=== PATIENT | female | born 1950 | race Caucasian/White ===

== ENCOUNTER 2016-11-17 20:27 | Emergency (ER) | payer MEDICARE ==
[~2016-11-17] VITALS: Ht 162.6 cm; Wt 96.0 kg
--- NOTE | 2016-11-17 20:31 | ED.ADGEN ---
Past History Past Medical History: Bronchitis, COPD, Pneumonia, Other Past Surgical History: Other Smoking: Cigarettes, Quit Greater Than 1 Year Adult General Chief Complaint Chief Complaint " They called me to come in.. because my labs came back.. that I might have a pul. emboli..." HPI HPI Patient is a 66 year old female who presents with above hx and complaints of recent hx of chest cold since 11/08/16. Pt. hx myalgia, arthralgia, malaise, and loss of appetite. Patient seen in Dr. Galvin's office today and labs came back with elevated d-dimer. Patient reportedly had decreased saturations in the medicine clinic. Saturations increased with breathing treatments. Patient does smoke. History of chronic bronchitis, COPD, ADD, anxiety, thyroid nodules, sleep apnea, tobacco abuse - 49 pack years, ( stop tob. 2 yrs. ago), , hypertension, ashen, insomnia, status post bariatric surgery , back surgery and chronic back pain. Review of Systems Review of Systems Constitutional: Hx of fever or chills [] Eyes: Denies change in visual acuity, redness, or eye pain [] HENT: Denies nasal congestion or sore throat [] Respiratory: Complaints of cough and shortness of breath [] Cardiovascular: No additional information not addressed in HPI [] GI: Denies abdominal pain, nausea, vomiting, bloody stools or diarrhea [] : Denies dysuria or hematuria [] Musculoskeletal: Denies back pain or joint pain [] Integument: Denies rash or skin lesions [] Neurologic: Denies headache, focal weakness or sensory changes [] Endocrine: Denies polyuria or polydipsia [] Family History Family History Hx. father DC from [place], prostate cancer age 67. Mother age 82. History of strokes and MIs with grandparents and siblings with cardiomyopathy. Current Medications Current Medications Current Medications Medications (Trade) Dose Ordered Sig/Amarilis Start Time Stop Time Status Last Admin Dose Admin Albuterol Sulfate (Ventolin Hfa) 2 puff 1X ONCE 11/17/16 23:30 11/17/16 23:31 DC 11/17/16 23:18 2 PUFF Albuterol/ Ipratropium (Duoneb) 3 ml 1X ONCE 11/17/16 21:00 11/17/16 21:01 DC 11/17/16 21:45 3 ML Aspirin 325 mg 325 mg 1X ONCE 11/17/16 21:00 11/17/16 21:01 DC 11/17/16 21:45 325 MG Azithromycin 500 mg 500 mg 1X ONCE 11/17/16 22:30 11/17/16 22:31 DC 11/17/16 22:45 500 MG Ceftriaxone Sodium/Sodium Chloride (Rocephin/Iv Sodium Chloride 0.9% 50ml) 50 ml @ 100 mls/hr 1X ONCE 11/17/16 22:30 11/17/16 22:59 DC 11/17/16 22:46 100 MLS/HR Ceftriaxone Sodium (Rocephin) 1 gm STK-MED ONCE 11/17/16 22:36 11/17/16 22:37 DC Enoxaparin Sodium (Lovenox 100mg Syringe) 90 mg 1X ONCE 11/17/16 20:45 11/17/16 20:47 DC 11/17/16 21:45 90 MG Info 1 each 1 each PRN DAILY PRN 11/17/16 21:15 11/18/16 00:07 DC Iohexol (Omnipaque 300 Mg/ml) 75 ml 1X ONCE 11/17/16 21:15 11/17/16 21:16 DC 11/17/16 22:08 75 ML Lactated Ringer's (Iv Lactated Ringers) 1,000 ml @ 100 mls/hr Q10H 11/17/16 20:45 11/18/16 00:07 DC 11/17/16 21:45 100 MLS/HR Sodium Chloride (Iv Sodium Chloride 0.9% 50ml) 50 ml @ As Directed STK-MED ONCE 11/17/16 22:36 11/17/16 22:37 DC See nursing for home meds Allergies Allergies Allergies Coded Allergies Type Severity Reaction Last Updated Verified No Known Drug Allergies 11/17/16 No No known drug allergies Physical Exam Physical Exam Constitutional:mild distress, non-toxic appearance. [] HENT: Normocephalic, atraumatic, bilateral external ears normal, oropharynx moist, no oral exudates, nose normal. [] Eyes: PERRLA, EOMI, conjunctiva normal, no discharge. Glasses. Neck: Normal range of motion, no tenderness, supple, no stridor. [] Cardiovascular:Heart rate regular rhythm, no murmur [] Lungs & Thorax: Bilateral breath sounds equal with scattered wheezes and crackles Lt. posterior base on auscultation [] Abdomen: Bowel sounds normal, soft, no tenderness, no masses, no pulsatile masses. Obese. Skin: Warm, dry, no erythema, no rash. [] Back: No tenderness, no CVA tenderness. [] Extremities: No tenderness, no cyanosis, no clubbing, ROM intact, no edema. [] No cording noted. Neurologic: Alert and oriented X 3, normal motor function, normal sensory function, no focal deficits noted. [] Psychologic: Affect anxious, judgement normal, mood normal. [] Current Patient Data Vital Signs Vital Signs Date Time Temp Pulse Resp B/P Pulse Ox O2 Delivery O2 Flow Rate FiO2 11/17/16 23:21 99.1 11/17/16 22:26 97 20 164/79 95 Nasal Cannula 2 Lab Results Laboratory Tests Test 11/17/16 21:15 11/17/16 22:50 White Blood Count 16.8x10^3/uL (4.0-11.0) H Red Blood Count 3.54x10^6/uL (3.50-5.40) Hemoglobin 10.7g/dL (12.0-15.5) L Hematocrit 31.7% (36.0-47.0) L Mean Corpuscular Volume 90fL (79-100) Mean Corpuscular Hemoglobin 30pg (25-35) Mean Corpuscular Hemoglobin Concent 34g/dL (31-37) Red Cell Distribution Width 14.7% (11.5-14.5) H Platelet Count 427x10^3/uL (140-400) H Neutrophils (%) (Auto) 80% (31-73) H Lymphocytes (%) (Auto) 11% (24-48) L Monocytes (%) (Auto) 8% (0-9) Eosinophils (%) (Auto) 0% (0-3) Basophils (%) (Auto) 1% (0-3) Neutrophils # (Auto) 13.5x10^3uL (1.8-7.7) H Lymphocytes # (Auto) 1.9x10^3/uL (1.0-4.8) Monocytes # (Auto) 1.4x10^3/uL (0.0-1.1) H Eosinophils # (Auto) 0.0x10^3/uL (0.0-0.7) Basophils # (Auto) 0.1x10^3/uL (0.0-0.2) Segmented Neutrophils % 82% (35-66) H Lymphocytes % 11% (24-48) L Monocytes % 5% (0-10) Eosinophils % 1% (0-5) Basophils % 1% (0-3) Platelet Estimate Increased (ADEQUATE) Polychromasia Present Prothrombin Time 10.2SEC (9.4-11.4) Prothrombin Time INR 1.0 (0.9-1.1) PTT 29SEC (23-33) D-Dimer (Windy) 2.28mg/L (0.00-0.50) H Sodium Level 134mmol/L (136-145) L Potassium Level 3.7mmol/L (3.5-5.1) Chloride Level 96mmol/L (98-107) L Carbon Dioxide Level 29mmol/L (21-32) Anion Gap 9 (6-14) Blood Urea Nitrogen 10mg/dL (7-20) Creatinine 0.8mg/dL (0.6-1.0) Estimated GFR (Cockcroft-Gault) 71.3 Glucose Level 104mg/dL (70-99) H Calcium Level 8.6mg/dL (8.5-10.1) Magnesium Level 2.0mg/dL (1.8-2.4) Total Bilirubin 0.2mg/dL (0.2-1.0) Direct Bilirubin 0.1mg/dL (0.0-0.2) Aspartate Amino Transferase (AST) 34U/L (15-37) Alanine Aminotransferase (ALT) 68U/L (14-59) H Alkaline Phosphatase 113U/L (46-116) Creatine Kinase 16U/L (26-192) L Creatine Kinase MB (Mass) < 0.5ng/mL (0.0-3.6) Creatine Kinase MB Relative Index 3.1% (0-4) Troponin I Quantitative < 0.017ng/mL (0-0.055) PJ-Smd-L-Type Natriuretic Peptide 211pg/mL (0-124) H Total Protein 7.0g/dL (6.4-8.2) Albumin 2.2g/dL (3.4-5.0) L Urine Collection Type Unknown Urine Color Yellow Urine Clarity Hazy Urine pH 7.0 Urine Specific Dana 1.010 Urine Protein Neg (NEG-TRACE) Urine Glucose (UA) Negmg/dL (NEG) Urine Ketones (Stick) Negmg/dL (NEG) Urine Blood Trace (NEG) Urine Nitrite Neg (NEG) Urine Bilirubin Neg (NEG) Urine Urobilinogen Dipstick 0.2mg/dL (0.2 mg/dL) Urine Leukocyte Esterase Small (NEG) Urine RBC 0/HPF (0-2) Urine WBC Occ/HPF (0-4) Urine Squamous Epithelial Cells Few/LPF Urine Bacteria Few/HPF (0-FEW) Urine Opiates Screen Neg (NEG) Urine Methadone Screen Neg (NEG) Urine Barbiturates Pos (NEG) Urine Phencyclidine Screen Neg (NEG) Urine Amphetamine/Methamphetamine Neg (NEG) Urine Benzodiazepines Screen Neg (NEG) Urine Cocaine Screen Neg (NEG) Urine Cannabinoids Screen Neg (NEG) Urine Ethyl Alcohol Neg (NEG) EKG EKG My interpretation of EKIG shows sinus 95, torin-lateral changes. No findings of acute STEMI with contralateral changes. [] Radiology/Procedures Radiology/Procedures My interpretation of CXR shows Lt pneumonia and some pul. nodules. COPD pattern. CT shows no PE, but Lt. lower Broncho pneumonia. A Rt. middle lober irregular nodule, and Rt. lower pul. nodule Course & Med Decision Making Course & Med Decision Making Pertinent Labs and Imaging studies reviewed. (See chart for details). Patient take antibiotics as previous directed. Use MDI 2 puffs 4 times a day. Patient must follow-up primary and with pulmonary. Call Carmen or Armando tomorrow for follow-up appointment, other pulmonary as pt. elects. . Get any old chest CT's or X-rays. Recommend pt. get bx of lesion. Return if any acute changes. [] Final Impression Final Impression 1. Dyspnea [] 2. COPD 3. Lt. Bronchial Pneumonia 4. Leukocytosis 5. Anemia 6. Elevated ALT 7. Severe Malnutrition- alb. 2.2 8. Rt. Spiculated Lung Nodule- suspicious for lung mass/neoplasm Problems: Dragon Disclaimer Dragon Disclaimer This electronic medical record was generated, in whole or in part, using a voice recognition dictation system. CAILIN FAIR MD Nov 17, 2016 20:31
[2016-11-17] MEDS ORDERED: ENOXAPARIN ** NOTE DOSE ** SYRINGE SQ ONE (20:45)
[2016-11-17] MEDS ORDERED: IV RINGERS SOLUTION,LACTATED 1,000 ML IV SCH (20:45)
[2016-11-17] MEDS ORDERED: ASPIRIN 325 MG TABLET PO ONE (21:00)
[2016-11-17] MEDS ORDERED: IPRATRPIUM/ALBUTEROL 0.5/2.5MG 3 ML NEBU. NEB ONE (21:00)
[2016-11-17] MEDS ORDERED: CONTRAST GIVEN MC PRN (21:15)
[2016-11-17] MEDS ORDERED: IOHEXOL 300 MG/ML 75 ML VIAL. IV ONE (21:15)
[2016-11-17 21:41] LABS: BASO # 0.1 x10^3/uL (0.0-0.2); BASO % 1 % (0-3); EOS % 0 % (0-3); HEMATOCRIT 31.7 % (36.0-47.0); HEMOGLOBIN 10.7 g/dL (12.0-15.5); LYMPH # 1.9 x10^3/uL (1.0-4.8); LYMPH % 11 % (24-48); MEAN CORPUSCULAR HEMOGLOBIN 30 pg (25-35); MEAN CORPUSCULAR HGB CONC 34 g/dL (31-37); MEAN CORPUSCULAR VOLUME 90 fL (79-100); MONO # 1.4 x10^3/uL (0.0-1.1); MONO % 8 % (0-9); NEUT # 13.5 x10^3uL (1.8-7.7); NEUT % 80 % (31-73); PLATELET COUNT 427 x10^3/uL (140-400); RED BLOOD COUNT 3.54 x10^6/uL (3.50-5.40); RED CELL DISTRIBUTION WIDTH 14.7 % (11.5-14.5); WHITE BLOOD COUNT 16.8 x10^3/uL (4.0-11.0)
[2016-11-17 21:57] LABS: ALBUMIN 2.2 g/dL (3.4-5.0); ALK PHOS 113 U/L (46-116); ALT (SGPT) 68 U/L (14-59); ANION GAP 9 (6-14); AST (SGOT) 34 U/L (15-37); BLOOD UREA NITROGEN 10 mg/dL (7-20); CALCIUM 8.6 mg/dL (8.5-10.1); CARBON DIOXIDE 29 mmol/L (21-32); CHLORIDE 96 mmol/L (98-107); CREATINE KINASE 16 U/L (26-192); CREATININE 0.8 mg/dL (0.6-1.0); DIRECT BILIRUBIN 0.1 mg/dL (0.0-0.2); GFR 71.3; GLUCOSE 104 mg/dL (70-99); POTASSIUM 3.7 mmol/L (3.5-5.1); SODIUM 134 mmol/L (136-145); TOTAL BILIRUBIN 0.2 mg/dL (0.2-1.0)
[2016-11-17 22:09] LABS: % BASOS 1 % (0-3); % EOS 1 % (0-5); % LYMPHS 11 % (24-48); % MONOS 5 % (0-10); % SEGS 82 % (35-66)
[2016-11-17 22:13] LABS: PLT ESTIMATE INCREASED (ADEQUATE)
[2016-11-17 22:16] LABS: POLYCHROMASIA PRESENT
[2016-11-17 22:26] VITALS: BP 164/79
[2016-11-17] MEDS ORDERED: AZITHROMYCIN 250 MG TABLET. PO ONE (22:30)
[2016-11-17] MEDS ORDERED: CEFTRIAXONE SODIUM 1 GM in IV NORMAL SALINE 50ML 50 ML IV ONE (22:30)
[2016-11-17] MEDS ORDERED: CEFTRIAXONE SODIUM 1 GM VIAL IV ONE (22:36)
[2016-11-17] MEDS ORDERED: IV NORMAL SALINE 50ML 50 ML ONE (22:36)
--- NOTE | 2016-11-17 22:48 | RAD ---
PROCEDURE CT chest with contrast, pulmonary angiogram. HISTORY Dyspnea, cough, congestion. Low O2 saturation. TECHNIQUE Helical CT imaging of the chest is performed after 75 cc Omnipaque 300 IV contrast using pulmonary angiogram protocol. A coronal 3D MIP reconstruction is performed to better evaluate the pulmonary arteries. PQRS: One or more the following individualized dose reduction techniques were utilized for the study: 1. Automated exposure control. 2. Adjustment of the mA and/or kV according to patient size. 3. Use of iterative reconstruction technique. COMPARISON None. FINDINGS The pulmonary arteries are adequately contrast opacified. No CT evidence of pulmonary embolus. No thoracic aortic dissection. Postsurgical change gastroesophageal junction. There are subcentimeter bilateral hilar lymph nodes. Borderline right paratracheal adenopathy. Cardiac size normal, no pericardial effusion. There is trace left pleural effusion. There is consolidation with surrounding ground-glass opacities in the posterior left lower lobe. There is peribronchial thickening leading to the consolidation. Minimal upper lobe centrilobular emphysema. There is a nodular opacity adjacent to the mediastinum that is along the major fissure in the right lung measuring about 2 centimeters. There is a 7 millimeter noncalcified nodule in the posterior right upper lobe, image 46. There is an irregular pulmonary nodule in the right middle lobe measuring 2.3 x 2.8 by 2 cm. Visualized upper abdomen unremarkable. No compression fracture in the thoracic spine is seen. No acute bone abnormality. IMPRESSION 1. No CT evidence of pulmonary embolus. 2. There is posterior left lower lobe bronchopneumonia. Trace left pleural effusion. 3. There is an irregular nodule in the right middle lobe suspicious for lung malignancy. 4. Indeterminate 7 millimeter pulmonary nodule in the posterior right upper lobe. 5. Irregular nodular opacity in the superior segment of the right lower lobe may be infectious/inflammatory. 6. Recommend follow up CT chest in 6-8 weeks. Electronically signed by: Danilo Omer MD (Nov 17, 2016 22:47:21)
[2016-11-17 23:20] LABS: BARBITURATES POS (NEG); BENZODIAZEPINES NEG (NEG); CANNABINOIDS NEG (NEG); COCAINE NEG (NEG); METHADONE NEG (NEG); OPIATES NEG (NEG); PHENCYCLIDINE NEG (NEG)
[2016-11-17 23:21] LABS: BACTERIA,URINE FEW /HPF (0-FEW); BILIRUBIN,URINE NEG (NEG); CLARITY,URINE HAZY; COLOR,URINE YELLOW; GLUCOSE,URINE NEG (NEG); NITRITE,URINE NEG (NEG); RBC,URINE 0 /HPF (0-2); SQUAMOUS EPITHELIAL CELL,UR FEW /LPF; UROBILINOGEN,URINE 0.2 mg/dL (0.2 mg/dL); WBC,URINE OCC /HPF (0-4)
[2016-11-17 23:22] LABS: AMPHETAMINE/METHAMPHETAMINE NEG (NEG)
[2016-11-17] MEDS ORDERED: ALBUTEROL SULFATE 8GM INHALER. INH ONE (23:30)
--- NOTE | 2016-11-18 08:29 | RAD ---
PA and lateral chest radiographs 11/17/2016 Clinical history: Increasing shortness of breath. Hypoxia. PA and lateral digital radiographs of the chest were obtained. Comparison study is dated 03/13/2007. The cardiac silhouette is borderline enlarged. The thoracic aorta is tortuous. Atherosclerotic calcification of the thoracic aorta is seen. Left lower lobe atelectasis and or infiltrate is noted. A 2 cm masslike opacity is seen involving the right middle lobe which is new since previous examination. This is suspicious for a neoplasm. No pneumothorax or large pleural effusion is seen. Degenerative changes are seen involving the thoracic spine. Impression: 1. Left lower lobe atelectasis and/or infiltrate. 2. 2 cm masslike opacity is seen in the right middle lobe which is suspicious for a lung neoplasm.
--- NOTE | 2016-11-18 10:43 | EKG ---
[address] [address] Test Date: 2016-11-17 Test Time: 20:55:30 Pat Name: ANDI LEONG Department: Room: Gender: F Reel Winder: JOEY : [id number] Requested By: CAILIN FAIR Order Number: [id number] Reading MD: Measurements Intervals Sheldon Rate: 95 P: 39 WI: 160 QRS: 1 QRSD: 74 T: 40 QT: 334 QTc: 423 Interpretive Statements SINUS RHYTHM QRS(T) CONTOUR ABNORMALITY CONSIDER ANTEROLATERAL MYOCARDIAL DAMAGE POSSIBLY ABNORMAL ECG RI6.01 Unconfirmed report No previous ECG available for comparison
== END 2016-11-17 23:21 | disposition home or self-care (01) ==
LOC: ER 20:36
DX: R06.00 Dyspnea, unspecified (principal); J44.9 Chronic obstructive pulmonary disease, unspecified; J18.0 Bronchopneumonia, unspecified organism; D64.9 Anemia, unspecified; R74.8 Abnormal levels of other serum enzymes; E43 Unspecified severe protein-calorie malnutrition; R91.1 Solitary pulmonary nodule; D72.829 Elevated white blood cell count, unspecified; F17.210 Nicotine dependence, cigarettes, uncomplicated; I10 Essential (primary) hypertension; G47.30 Sleep apnea, unspecified; N85.6 Intrauterine synechiae; G89.29 Other chronic pain; Z98.84 Bariatric surgery status
CPT/HCPCS: 36415; 71020; 71275; 80048; 80076; 80305; 81001; 82553; 83735; 83880; 84443; 84484; 85007; 85027; 85379; 85610; 85730; 87040; 93005; 94640; 96361; 96365; 96372; 99285; J0456; J0696; J1650; J7120; J7613; J7620; Q9967; G0481

== ENCOUNTER → 2018-11-18 | Outpatient (CLI) | payer MEDICARE ==
[~2018-11-18] MED LIST: 0.9 % SODIUM CHLORIDE 10 ML VIAL ONE; IOHEXOL 300 MG/ML 50 ML VIAL. ONE; LIDOCAINE 1% PF 30 ML VIAL. ONE; methylPREDNISolone ACETATE 80 MG/ML VIAL. ONE
== END | disposition home or self-care (01) ==
LOC: SURG 12:31
PROVIDERS: ATTEND Anesthesiology Pain Medicine
DX: M54.16 Radiculopathy, lumbar region (principal); I10 Essential (primary) hypertension; Z87.01 Personal history of pneumonia (recurrent); F17.210 Nicotine dependence, cigarettes, uncomplicated; Z79.899 Other long term (current) drug therapy; Z72.89 Other problems related to lifestyle; M19.90 Unspecified osteoarthritis, unspecified site; Z98.1 Arthrodesis status
CPT/HCPCS: 62323; J1040; J2001; Q9967

== ENCOUNTER → 2018-11-25 | Outpatient (CLI) | payer MEDICARE ==
--- NOTE | 2018-11-29 18:21 | RAD ---
DATE: 11/25/2018 EXAM: MAMMO LALIT SCREENING BILATERAL HISTORY: Routine screening COMPARISON: 09/16/2012 mammogram This study was interpreted with the benefit of Computerized Aided Detection (CAD). Breast Density: SCATTERED The breast parenchyma shows scattered fibroglandular densities. Breast parenchyma level B. FINDINGS: Benign calcifications are present. No mass or distortion. IMPRESSION: Benign findings. BI-RADS CATEGORY: 1 NEGATIVE RECOMMENDED FOLLOW-UP: 12M 12 MONTH FOLLOW-UP PQRS compliance statement: Patient information was entered into a reminder system with a target due date in one year for the next mammogram. Mammography is a sensitive method for finding small breast cancers, but it does not detect them all and is not a substitute for careful clinical examination. A negative mammogram does not negate a clinically suspicious finding and should not result in delay in biopsying a clinically suspicious abnormality. "Our facility is accredited by the [employer] Mammography Program."
== END | disposition home or self-care (01) ==
LOC: MAMMO 14:08
PROVIDERS: ATTEND Family Medicine
DX: Z12.31 Encounter for screening mammogram for malignant neoplasm of breast (principal); R92.8 Other abnormal and inconclusive findings on diagnostic imaging of breast
CPT/HCPCS: 77063; 77067

== ENCOUNTER → 2021-03-06 | Day surgery (SDC) | payer MEDICARE ==
[~2021-03-06] MED LIST changes: -0.9 % SODIUM CHLORIDE 10 ML VIAL ONE; +BUPIVACAINE MPF 0.25% 10 ML VIAL. ONE; +DEXAMETHASONE SOD PHOS 10 MG/ML VIAL. ONE; -methylPREDNISolone ACETATE 80 MG/ML VIAL. ONE
[2021-03-06 13:37] VITALS: BP 150/83
== END ==
LOC: SURG 12:48
PROVIDERS: ATTEND Anesthesiology
DX: M54.16 Radiculopathy, lumbar region (principal); I10 Essential (primary) hypertension; M19.90 Unspecified osteoarthritis, unspecified site; Z79.899 Other long term (current) drug therapy; Z98.890 Other specified postprocedural states
CPT/HCPCS: 64483; 64484; J1100; J3490; Q9967